=== PATIENT | male | born 1945 | race Two or more races ===

== ENCOUNTER 2016-05-02 12:59 | Emergency (ER) | payer OTHER ==
[~2016-05-02] VITALS: Ht 177.8 cm; Wt 92.5 kg
--- NOTE | 2016-05-02 13:24 | PHYS DOC ---
Past Medical History Past Medical History: CAD Adult General Chief Complaint Chief Complaint: LACERATION/AVULSION HPI HPI Patient is a 70 year old presents emergency department stating that he was washing dishes when he cut his left index finger. He is able to move the finger without any difficulty. He is unsure when his last tetanus immunization occurred. He does have bleeding at the current time. He has pressure and elevation at the current time to help control the bleeding. Review of Systems Review of Systems Constitutional: Denies fever or chills [] Eyes: Denies change in visual acuity, redness, or eye pain [] HENT: Denies nasal congestion or sore throat [] Respiratory: Denies cough or shortness of breath [] Cardiovascular: No additional information not addressed in HPI [] GI: Denies abdominal pain, nausea, vomiting, bloody stools or diarrhea [] : Denies dysuria or hematuria [] Musculoskeletal: Denies back pain or joint pain [] Integument: Denies rash or skin lesions. Laceration to the left index finger Neurologic: Denies headache, focal weakness or sensory changes [] Current Medications Current Medications Current Medications Medications (Trade) Dose Ordered Sig/Brooke Start Time Stop Time Status Last Admin Dose Admin Diphtheria/ Tetanus/Acell Pertussis (Boostrix) 0.5 ml ONCE ONCE 05/02/16 13:30 05/02/16 13:31 DC 05/02/16 13:38 0.5 ML Lidocaine/Sodium Bicarbonate (Buffered Lidocaine 1%) 20 ml 1X ONCE 05/02/16 13:30 05/02/16 13:31 DC 05/02/16 13:37 20 ML Allergies Allergies Allergies Coded Allergies Type Severity Reaction Last Updated Verified No Known Drug Allergies 05/02/16 No Physical Exam Physical Exam Constitutional: Well developed, well nourished, no acute distress, non-toxic appearance. [] HENT: Normocephalic, atraumatic, bilateral external ears normal, oropharynx moist, no oral exudates, nose normal. [] Eyes: PERRLA, EOMI, conjunctiva normal, no discharge. [] Neck: Normal range of motion, no tenderness, supple, no stridor. [] Cardiovascular:Heart rate regular rhythm Lungs & Thorax: no respiratory distress Skin: Warm, dry, no erythema, no rash. Patient with an approximately 2 cm laceration to the left index finger. Bleeding is currently notable. Patient is able to move his finger without difficulty he is able to straighten the finger completely out. He is able to put his finger in a fist type action. He has good sensation 2+ cap refill Back: No tenderness Extremities: No tenderness, no cyanosis, no clubbing, ROM intact, no edema. [] Neurologic: Alert and oriented X 3, normal motor function, normal sensory function, no focal deficits noted. [] Psychologic: Affect normal, judgement normal, mood normal. [] Current Patient Data Vital Signs Vital Signs Date Time Temp Pulse Resp B/P Pulse Ox O2 Delivery O2 Flow Rate FiO2 05/02/16 13:29 98.2 92 18 97 Room Air 98.2 EKG EKG [] Radiology/Procedures Radiology/Procedures [] Course & Med Decision Making Course & Med Decision Making Pertinent Labs and Imaging studies reviewed. (See chart for details) 5 mL of 1% lidocaine was injected into the left index finger for digital block. Site was irrigated with 20 mL of normal saline. Site was cleaned with Betadine. 4-0 nylon was used to suture the area with 7 interrupted sutures placed. Patient tolerated the procedure well without any difficulty. Patient was provided with signs and symptoms to return back to emergency department. His provided with signs and symptoms of infection: Redness, warmth, tenderness or any yellow/greenish transient become from the site he was instructed that this should happen she'll need follow-up to primary care physician. He was instructed to have sutures out in the next 7-10 days. Patient agrees with discharge instructions treatment regimens and follow-up recommendations. [] Dragon Disclaimer Dragon Disclaimer This electronic medical record was generated, in whole or in part, using a voice recognition dictation system. Departure Departure Impression: Primary Impression: Laceration Disposition: 01 HOME, SELF-CARE Condition: STABLE Patient Instructions: Laceration Care, Adult, [id number], Sutured Wound Care , [id number] Additional Instructions: Activity as tolerated. Tylenol or ibuprofen for pain and discomfort. Ice packs on 20 minutes off 20 minutes several times a day. Elevation as much as possible. Keep the finger clean and dry. Clean the site with soap and water and apply antibiotic ointment to the site twice a day. Watch for signs and symptoms of infection: Redness, warmth, tenderness or any yellow/greenish drainage of a come from the site physician occur you need follow -up to primary care physician immediately. Follow-up with your primary care physician next 7-10 days to have the suture removed. Return back to emergency prior signs symptoms of become worse. LEESA BAPTISTE APRN May 02, 2016 13:24
[2016-05-02 13:29] VITALS: BP 123/74
[2016-05-02] MEDS ORDERED: LIDOCAINE 1% / SOD BICARB 8.4% 20 ML VIAL. IJ ONE (13:30)
[2016-05-02] MEDS ORDERED: DIPHTH,PERTUSS(ACELL),TET TOX 0.5 ML DISP.SYRIN. VAX IM ONE (13:30)
== END 2016-05-02 14:49 | disposition home or self-care (01) ==
LOC: ER 12:59
DX: S61.211A Laceration without foreign body of left index finger without damage to nail, initial encounter (principal); I25.10 Atherosclerotic heart disease of native coronary artery without angina pectoris; Y28.8XXA Contact with other sharp object, undetermined intent, initial encounter; Y93.G1 Activity, food preparation and clean up; Y99.8 Other external cause status; Y92.89 Other specified places as the place of occurrence of the external cause
CPT/HCPCS: 12001; 90471; 90715; 99283-25

== ENCOUNTER → 2019-04-09 | Outpatient (CLI) | payer MEDICARE ==
--- NOTE | 2019-04-09 18:09 | KCIC ---
SHOULDER 2+V RIGHT History: Acute pain. Fell one month ago. COMPARISON: None FINDINGS: There is some mild sclerotic density along the right humeral neck. No discrete cortical break or fracture line is seen. Degenerative changes at acromioclavicular and glenohumeral joints. No significant soft tissue abnormality. IMPRESSION: 1. Mild irregular sclerosis across the right humeral neck, could conceivably represent a nonacute nondisplaced fracture. This could be further evaluated with MRI or CT of the proximal humerus, if further workup is warranted. 2. DJD. Electronically signed by: Candelario Fairchild MD (04/09/2019 6:05 PM) [id number]
== END ==
LOC: KCIC 16:18
PROVIDERS: ATTEND Family Medicine
DX: M19.011 Primary osteoarthritis, right shoulder (principal)
CPT/HCPCS: 73030

== ENCOUNTER → 2019-12-31 | Outpatient (CLI) | payer MEDICARE, OTHER ==
--- NOTE | 2019-12-31 17:25 | KCIC ---
RIBS RIGHT DATE: 12/31/2019 12:00 AM INDICATION: Reason: Chronic Rt sided rib pain. Pain mid ribs, no injury. / Spl. Instructions: / History: COMPARISON: None available. FINDINGS: Chest: Heart size is within normal limits. No focal consolidations are seen. No evidence for pulmonary edema, pleural effusion, or pneumothorax. Bones: No radiographic evidence for a displaced, right-sided rib fracture is seen. IMPRESSION: No acute osseous abnormality. Electronically signed by: Homar Gtz MD (12/31/2019 5:22 PM) [id number]
== END ==
LOC: KCIC 13:21
PROVIDERS: ATTEND Family Medicine
DX: R07.81 Pleurodynia (principal)
CPT/HCPCS: 71100